=== PATIENT | male | born 1980 | race Caucasian/White ===

== ENCOUNTER 2017-06-09 22:09 | Emergency (ER) | payer BC ==
--- NOTE | 2017-06-09 22:38 | ER Document Report ---
ED General - General Chief Complaint: Anxiety Stated Complaint: ANXIETY Time Seen by Provider: 06/09/17 22:37 Mode of Arrival: Ambulatory Information source: Patient Notes: 36-year-old male with a history of of depression, anxiety, GERD, previous opioid dependence and low testosterone presents with complaint of anxiety. Patient states that he has suffered the loss of his mother approximately 1 week prior to arrival. States he lives next door and was very close to her and has been having daily episodes of anxiety, palpitations. She states this evening he took gabapentin and Ambien and attempted to go to sleep when he became very anxious began experiencing palpitations, hyperventilating and sweating. Patient has had prior similar symptoms. Denies any recent illnesses. Currently he denies any headache, chest pain, shortness of breath, abdominal pain. TRAVEL OUTSIDE OF THE [place] IN LAST 30 DAYS: No - HPI Onset: Just prior to arrival Onset/Duration: Gradual Quality of pain: No pain Severity: None Associated symptoms: Nausea. denies: Vomiting Exacerbated by: Denies Relieved by: Denies Similar symptoms previously: Yes Recently seen / treated by doctor: Yes - Related Data Allergies/Adverse Reactions: No Known Allergies Allergy (Verified 11/13/13 00:45) Past Medical History - General Information source: Patient - Social History Smoking Status: Never Smoker Frequency of alcohol use: None Drug Abuse: None Lives with: Family Family History: CAD - Past Medical History Cardiac Medical History: Reports: Hx Hypertension GI Medical History: Reports: Hx Gastroesophageal Reflux Disease Musculoskeltal Medical History: Reports Hx Musculoskeletal Trauma Psychiatric Medical History: Reports: Hx Anxiety, Hx Depression - Immunizations Immunizations up to date: Yes Hx Diphtheria, Pertussis, Tetanus Vaccination: Yes Review of Systems - Review of Systems Constitutional: See HPI, Diaphoresis. denies: Fever, Weakness Cardiovascular: Palpitations, Heart racing. denies: Dizziness Respiratory: denies: Cough, Short of breath Gastrointestinal: Nausea. denies: Diarrhea, Vomiting Genitourinary: denies: Dysuria Musculoskeletal: Muscle pain, Muscle stiffness Skin: No symptoms reported Neurological/Psychological: Anxiety. denies: Confusion, Hallucinations, Lost consciousness, Headaches, Suicidal ideation Physical Exam - Vital signs Vitals: Temp Pulse Resp BP Pulse Ox 98.1 F 107 H 20 156/89 H 99 06/09/17 22:11 06/09/17 22:11 06/09/17 22:11 06/09/17 22:11 06/09/17 22:11 Interpretation: Normal, Tachycardic - General General appearance: Appears well, Alert In distress: None - HEENT Head: Normocephalic, Atraumatic Eyes: Normal Extraocular movements intact: Yes Pupils: PERRL Ears: Normal External canal: Normal Tympanic membrane: Normal Pharynx: Normal Neck: Normal - Respiratory Respiratory status: No respiratory distress. No: Respiratory distress Chest status: Nontender Breath sounds: Normal Chest palpation: Normal - Cardiovascular Rhythm: Regular Heart sounds: Normal auscultation Murmur: No Pulses: Normal: Radial Normal capillary refill: Yes - Abdominal Inspection: Normal Distension: No distension Bowel sounds: Normal Tenderness: Nontender Organomegaly: No organomegaly - Back Back: Normal, Nontender. No: CVA tenderness, Vertebra tenderness - Extremities General upper extremity: Normal inspection - Moves all extremities, Nontender, Normal color, Normal ROM, Normal temperature General lower extremity: Normal inspection, Nontender, Normal color, Normal ROM , Normal temperature, Normal weight bearing. No: Taj's sign - Neurological Neuro grossly intact: Yes Cognition: Normal Orientation: AAOx4 [place] Coma Scale Eye Opening: Spontaneous Michelle Coma Scale Verbal: Oriented Michelle Coma Scale Motor: Obeys Commands Michelle Coma Scale Total: 15 Speech: Normal Motor strength normal: LUE, RUE, LLE, RLE Sensory: Normal - Psychological Associated symptoms: Normal affect, Anxious, Depressed, Tearful, Unable to sleep Course - Re-evaluation Re-evalutation: 06/09/17 23:56 Reevaluation patient states he is feeling better. He has had no recurrence of symptoms. He was reassured and discharged home in table condition with a perception for Atarax. 06/10/17 05:37 36-year-old male with history of depression and anxiety presents with complaint of anxiety, chest palpitations, hyperventilation that occurred just prior to arrival. Patient has recently experienced the loss of his mother less than 1 week ago. He states that he has been having episodes of anxiety since that time. Upon arrival vitals reviewed and within normal limits. Patient does not appear toxic or dehydrated. He is in no acute distress. He denies SI/HI. Patient is anxious during my exam. Patient received 1 mg of Ativan during his ED course. EKG was obtained and showed no abnormalities. He was reassured by this. Patient was discharged home with a prescription for Vistaril. - Vital Signs Vital signs: Temp Pulse Resp BP Pulse Ox 98.7 F 87 18 119/90 H 96 06/10/17 00:05 06/10/17 00:05 06/10/17 00:05 06/10/17 00:05 06/10/17 00:05 - EKG Interpretation by Me EKG shows normal: Sinus rhythm Rate: Normal Rhythm: NSR Discharge - Discharge Clinical Impression: Anxiety as acute reaction to exceptional stress Condition: Good Disposition: HOME, SELF-CARE Instructions: Anxiety ([facility]) Prescriptions: Hydroxyzine Pamoate [Vistaril 50 mg Capsule] 50 mg PO Q8H PRN #15 capsule PRN Reason: Anxiety
[2017-06-09] MEDS ORDERED: LORAZEPAM 1 MG TABLET PO ONE (22:58)
[2017-06-10 00:09] VITALS: BP 119/90
--- NOTE | 2017-06-10 09:01 | EKG REPORT ---
SEVERITY:- NORMAL ECG - SINUS RHYTHM : Confirmed by: Ana Ro 10-Jun-2017 09:00:27
== END 2017-06-10 00:05 | disposition home or self-care (01) ==
LOC: ER 22:09
DX: F41.1 Generalized anxiety disorder (principal); F43.9 Reaction to severe stress, unspecified; R00.2 Palpitations; R11.0 Nausea; M79.1 Myalgia; I10 Essential (primary) hypertension
CPT/HCPCS: 93005; 93010; 99283

== ENCOUNTER 2018-04-08 15:28 | Emergency (ER) | payer OTHER, BC ==
[2018-04-08] MEDS ORDERED: OXYCODONE-ACETAMINOPHEN 5-325 MG TABLET PO ONE (16:08)
--- NOTE | 2018-04-08 16:11 | ER Document Report ---
ED Medical Screen (RME) - General Chief Complaint: Fall Stated Complaint: FALL/ANKLE AND ARM PAIN Time Seen by Provider: 04/08/18 16:05 Mode of Arrival: Wheelchair Information source: Patient Notes: pt presents after falling off a roof. pt reports he had ladder going up to 2nd floor, ladder fell, he landed on first story roof, grabbed gutter, fell to ground. no change in loc, c/o left ankle right hand and left upper arm pain. + swelling to ankle, drove self here, can get a ride home. denies head/neck pain. a&o. TRAVEL OUTSIDE OF THE [place] IN LAST 30 DAYS: No - Related Data Allergies/Adverse Reactions: No Known Allergies Allergy (Verified 04/08/18 15:31) Past Medical History - Social History Chew tobacco use (# tins/day): No Frequency of alcohol use: Occasional Drug Abuse: None - Past Medical History Cardiac Medical History: Reports: Hx Hypertension Renal/ Medical History: Denies: Hx Peritoneal Dialysis GI Medical History: Reports: Hx Gastroesophageal Reflux Disease Musculoskeltal Medical History: Reports Hx Musculoskeletal Trauma Psychiatric Medical History: Reports: Hx Anxiety, Hx Depression - Immunizations Immunizations up to date: Yes Hx Diphtheria, Pertussis, Tetanus Vaccination: Yes Physical Exam - Vital signs Vitals: Temp Pulse Resp BP Pulse Ox 98.2 F 99 16 128/76 H 96 04/08/18 15:59 04/08/18 15:59 04/08/18 15:59 04/08/18 15:59 04/08/18 15:59 Course - Vital Signs Vital signs: Temp Pulse Resp BP Pulse Ox 99.2 F 87 18 134/83 H 98 04/08/18 18:46 04/08/18 18:46 04/08/18 18:46 04/08/18 18:46 04/08/18 18:46 Doctor's Discharge - Discharge Clinical Impression: Left ankle sprain Condition: Good Disposition: HOME, SELF-CARE Instructions: Ice Packs ([facility]), Splint Precautions ([facility]), Sprained Ankle ([facility]) Additional Instructions: Please return if symptoms are getting worse. Prescriptions: Ketorolac Tromethamine [Toradol 10 mg Tablet] 10 mg PO Q8HP PRN 7 Days #21 tablet PRN Reason: Forms: Return to Work Referrals: PATRIZIA KOENIG MD [ACTIVE STAFF] - Follow up as needed
--- NOTE | 2018-04-08 16:37 | RADIOLOGY REPORT (SQ) ---
EXAM DESCRIPTION: HAND RIGHT 3 VIEWS COMPLETED DATE/TIME: 04/08/2018 4:29 pm REASON FOR STUDY: fall off roof, hand and ankle pain COMPARISON: None. EXAM PARAMETERS: NUMBER OF VIEWS: Three views. TECHNIQUE: AP, lateral and oblique radiographic images acquired of the right hand. LIMITATIONS: None. FINDINGS: MINERALIZATION: Normal. BONES: No acute fracture or dislocation. No worrisome bone lesions. JOINTS: No effusions. SOFT TISSUES: No soft tissue swelling. No foreign body. OTHER: No other significant finding. IMPRESSION: NEGATIVE STUDY OF THE RIGHT HAND. NO RADIOGRAPHIC EVIDENCE OF ACUTE INJURY. TECHNICAL DOCUMENTATION: JOB ID: [id number] [employer]- All Rights Reserved Reading location - IP/workstation name: [email or web address]
--- NOTE | 2018-04-08 16:38 | RADIOLOGY REPORT (SQ) ---
EXAM DESCRIPTION: ANKLE LEFT COMPLETE COMPLETED DATE/TIME: 04/08/2018 4:29 pm REASON FOR STUDY: fall off roof, hand and ankle pain COMPARISON: None. NUMBER OF VIEWS: Three views. TECHNIQUE: AP, lateral, and oblique radiographic images acquired of the left ankle. LIMITATIONS: None. FINDINGS: MINERALIZATION: Normal. BONES: No acute fracture or dislocation. No worrisome bone lesions. JOINTS: No effusions. SOFT TISSUES: Lateral soft tissue swelling OTHER: No other significant finding. IMPRESSION: Soft tissue swelling. No fracture. TECHNICAL DOCUMENTATION: JOB ID: [id number] [employer]- All Rights Reserved Reading location - IP/workstation name: [email or web address]
[2018-04-08] MEDS ORDERED: KETOROLAC TROMETHAMINE 60 MG/2 ML SDV IM ONE (17:15)
--- NOTE | 2018-04-08 17:18 | ER Document Report ---
ED Fall - General Chief Complaint: Fall Stated Complaint: FALL/ANKLE AND ARM PAIN Time Seen by Provider: 04/08/18 16:05 Mode of Arrival: Wheelchair Information source: Patient Notes: 37-year-old male was working on a roof. To level house. Fell off the upper level. Landed on the first level overhang. Slid down further and it was able to stop himself by grabbing the gutter. His fall was slowed and then he fell to the ground. Landed on the left leg. Twisted the ankle. Also with pain in the right hand. Pain in the right hand is getting better. Large amount of swelling to the left ankle reported. Denies any loss of consciousness. No back pain, hip pain. Did not his head. Denies any chest pain, abdominal pain or shortness of breath. TRAVEL OUTSIDE OF THE [place] IN LAST 30 DAYS: No - HPI Occurred: Just prior to arrival - Related data Allergies/Adverse Reactions: No Known Allergies Allergy (Verified 04/08/18 15:31) Past Medical History - General Information source: Patient - Social History Smoking Status: Never Smoker Chew tobacco use (# tins/day): No Frequency of alcohol use: Occasional Drug Abuse: None Lives with: Family Family History: CAD Patient has suicidal ideation: No Patient has homicidal ideation: No - Past Medical History Cardiac Medical History: Reports: Hx Hypertension Renal/ Medical History: Denies: Hx Peritoneal Dialysis GI Medical History: Reports: Hx Gastroesophageal Reflux Disease Musculoskeletal Medical History: Reports Hx Musculoskeletal Trauma Psychiatric Medical History: Reports: Hx Anxiety, Hx Depression - Immunizations Immunizations up to date: Yes Hx Diphtheria, Pertussis, Tetanus Vaccination: Yes Review of Systems - Review of Systems Notes: Constitutional: denies: Chills, Diaphoresis, Fever, Malaise, Weakness EENT: denies: Eye discharge, Blurred vision, Tearing, Double vision, Nose congestion, Nose discharge, Throat swelling, Mouth pain Cardiovascular: denies: Palpitations, Heart racing, Orthopnea, Dyspnea, Chest pain Respiratory: denies: Cough, Hurts to breathe, Wheezing, Shortness of breath Gastrointestinal: denies: Abdominal pain, Diarrhea, Nausea, Vomiting, Black stools, bright red blood in stool Genitourinary: denies: Burning, Dysuria, Discharge, Frequency, Flank pain, Hematuria Musculoskeletal: Complaining of pain in the left ankle and right hand. Hematologic/Lymphatic: denies: Anemia, Easy bleeding, Easy bruising, Blood clots Neurological/Psychological: denies: Confusion, Dementia, Depression, Loss of consciousness Skin: No lesions, no masses, no skin breakdown, no abscesses Physical Exam - Vital signs Vitals: Temp Pulse Resp BP Pulse Ox 98.2 F 99 16 128/76 H 96 04/08/18 15:59 04/08/18 15:59 04/08/18 15:59 04/08/18 15:59 04/08/18 15:59 Interpretation: Normal - General General appearance: Appears well, Alert - HEENT Head: Normocephalic, Atraumatic Eyes: Normal Pupils: PERRL - Respiratory Respiratory status: No respiratory distress Chest status: Nontender Breath sounds: Normal Chest palpation: Normal - Cardiovascular Rhythm: Regular Heart sounds: Normal auscultation Murmur: No - Abdominal Inspection: Normal Distension: No distension Bowel sounds: Normal Tenderness: Nontender Organomegaly: No organomegaly - Back Back: Normal, Nontender - Extremities General upper extremity: Normal inspection, Nontender, Normal color, Normal ROM, Normal temperature General lower extremity: Tender, Edema, Other - Swollen right ankle. Tenderness in the tibial fibular ligament.. No: Normal ROM, Normal weight bearing, Taj's sign - Neurological Neuro grossly intact: Yes Cognition: Normal Orientation: AAOx4 [place] Coma Scale Eye Opening: Spontaneous Michelle Coma Scale Verbal: Oriented Michelle Coma Scale Motor: Obeys Commands [place] Coma Scale Total: 15 Speech: Normal Motor strength normal: LUE, RUE, LLE, RLE Sensory: Normal - Psychological Associated symptoms: Normal affect, Normal mood - Skin Skin Temperature: Warm Skin Moisture: Dry Skin Color: Normal Course - Re-evaluation Re-evalutation: 04/08/18 20:17 No evidence of fracture. Will place in splint. Pain medication and urged close follow-up. Will DC at this time in stable condition. Ankle X-Ray 04/08/18 16:08 IMPRESSION: Soft tissue swelling. No fracture. Hand X-Ray 04/08/18 16:08 IMPRESSION: NEGATIVE STUDY OF THE RIGHT HAND. NO RADIOGRAPHIC EVIDENCE OF ACUTE INJURY. - Vital Signs Vital signs: Temp Pulse Resp BP Pulse Ox 99.2 F 87 18 134/83 H 98 04/08/18 18:46 04/08/18 18:46 04/08/18 18:46 04/08/18 18:46 04/08/18 18:46 Discharge - Discharge Clinical Impression: Left ankle sprain Qualifiers: Encounter type: initial encounter Involved ligament of ankle: tibiofibular ligament Qualified Code(s): S93.432A - Sprain of tibiofibular ligament of left ankle, initial encounter Condition: Good Disposition: HOME, SELF-CARE Instructions: Ice Packs ([facility]), Splint Precautions ([facility]), Sprained Ankle ([facility]) Additional Instructions: Please return if symptoms are getting worse. Prescriptions: Ketorolac Tromethamine [Toradol 10 mg Tablet] 10 mg PO Q8HP PRN 7 Days #21 tablet PRN Reason: Forms: Return to Work Referrals: PATRIZIA KOENIG MD [ACTIVE STAFF] - Follow up as needed
[2018-04-08 18:47] VITALS: BP 134/83
== END 2018-04-08 18:46 | disposition home or self-care (01) ==
LOC: ER 15:28
DX: S93.432A Sprain of tibiofibular ligament of left ankle, initial encounter (principal); M79.605 Pain in left leg; W13.2XXA Fall from, out of or through roof, initial encounter; Y99.0 Civilian activity done for income or pay; I10 Essential (primary) hypertension
CPT/HCPCS: 99283; 96372; 73610; 73130; L1902; J1885

== ENCOUNTER 2018-06-24 11:09 | Emergency (ER) | payer BC, OTHER ==
--- NOTE | 2018-06-24 11:44 | ER Document Report ---
ED Medical Screen (RME) - General Chief Complaint: Abdominal Pain Stated Complaint: ABDOMINAL PAIN Time Seen by Provider: 06/24/18 11:39 Mode of Arrival: Ambulatory Information source: Patient Notes: Patient is a 37-year-old male who presents with chief complaint of abdominal pain. Patient reports intermittent abdominal pain that radiates across his entire abdomen that radiates up into his epigastric area and chest. He states pain has been ongoing for 1 week, states it is intermittent. Denies any alleviating or exacerbating symptoms. Denies any nausea, vomiting, diarrhea or fever. Patient does report increased alcohol intake over the last 5 months, states he drinks approximately 4 drinks per day. Exam: Lung sounds are clear to auscultation bilaterally. Limited abdominal exam in triage reveals a soft and nontender abdomen. I have greeted and performed a rapid initial assessment of this patient. A comprehensive ED assessment and evaluation of the patient, analysis of test r esults and completion of the medical decision making process will be conducted by additional ED providers. Dictation of this chart was performed using voice recognition software; therefore, there may be some unintended grammatical errors. TRAVEL OUTSIDE OF THE [place] IN LAST 30 DAYS: No - Related Data Allergies/Adverse Reactions: No Known Allergies Allergy (Verified 06/24/18 11:10) Past Medical History - Social History Frequency of alcohol use: Heavy Drug Abuse: None - Past Medical History Cardiac Medical History: Reports: Hx Hypertension Renal/ Medical History: Denies: Hx Peritoneal Dialysis GI Medical History: Reports: Hx Gastroesophageal Reflux Disease Musculoskeltal Medical History: Reports Hx Musculoskeletal Trauma Psychiatric Medical History: Reports: Hx Anxiety, Hx Depression - Immunizations Immunizations up to date: Yes Hx Diphtheria, Pertussis, Tetanus Vaccination: Yes Physical Exam - Vital signs Vitals: Temp Pulse Resp BP Pulse Ox 98.0 F 93 14 135/78 H 100 06/24/18 11:25 06/24/18 11:25 06/24/18 11:25 06/24/18 11:25 06/24/18 11:25 Course - Vital Signs Vital signs: Temp Pulse Resp BP Pulse Ox 98.0 F 93 14 135/78 H 100 06/24/18 11:25 06/24/18 11:25 06/24/18 11:25 06/24/18 11:25 06/24/18 11:25
[2018-06-24 12:45] LABS: ABSOLUTE LYMPHOCYTES (AUTO) 1.1 10^3/uL (0.5-4.7); ABSOLUTE MONOCYTES (AUTO) 0.5 10^3/uL (0.1-1.4); ABSOLUTE NEUT (AUTO) 3.7 10^3/uL (1.7-8.2); BASOPHILS % (AUTO) 0.6 % (0-2); EOSINOPHILS % (AUTO) 0.7 % (0-6); HEMATOCRIT 47.2 % (37.9-51.0); HEMOGLOBIN 16.4 g/dL (13.5-17.0); LYMPHOCYTES % (AUTO) 20.6 % (13-45); MEAN CORPUSCULAR HEMOGLOBIN 30.8 pg (27.0-33.4); MEAN CORPUSCULAR HGB CONC 34.7 g/dL (32.0-36.0); MEAN CORPUSCULAR VOLUME 89 fl (80-97); MONOCYTES % (AUTO) 9.5 % (3-13); PLATELET COUNT 163 10^3/uL (150-450); RED BLOOD COUNT 5.31 10^6/uL (4.35-5.55); RED CELL DISTRIBUTION WIDTH 13.4 % (11.5-14.0); SEGMENTED NEUTROPHILS % (AUTO) 68.6 % (42-78); TOTAL CELLS COUNTED % (AUTO) 100 %; WHITE BLOOD COUNT 5.4 10^3/uL (4.0-10.5)
[2018-06-24 13:09] LABS: ALANINE AMINOTRANSFERASE 22 U/L (21-72); ALBUMIN 4.4 g/dL (3.5-5.0); ALKALINE PHOSPHATASE 68 U/L (38-126); ANION GAP 6 (5-19); ASPARTATE AMINO TRANSFERASE 20 U/L (17-59); BILIRUBIN,DIRECT 0.3 mg/dL (0.0-0.4); BILIRUBIN,TOTAL 0.7 mg/dL (0.2-1.3); BLOOD UREA NITROGEN 16 mg/dL (7-20); CALCIUM 9.6 mg/dL (8.4-10.2); CARBON DIOXIDE 31 mmol/L (22-30); CHLORIDE 101 mmol/L (98-107); GLUCOSE 110 mg/dL (75-110); LIPASE 30.2 U/L (23-300); POTASSIUM 4.5 mmol/L (3.6-5.0); SODIUM 137.9 mmol/L (137-145); TOTAL PROTEIN 7.6 g/dL (6.3-8.2)
[2018-06-24 13:45] LABS: APPEARANCE,URINE CLEAR; BILIRUBIN,URINE NEGATIVE (NEGATIVE); COLOR,URINE YELLOW; GLUCOSE, URINE NEGATIVE (NEGATIVE); KETONES,URINE NEGATIVE (NEGATIVE); LEUKOCYTE ESTERASE,URINE NEGATIVE (NEGATIVE); NITRITE,URINE NEGATIVE (NEGATIVE); PROTEIN,URINE NEGATIVE (NEGATIVE); URINE SPECIFIC GRAVITY 1.023; UROBILINOGEN,URINE NEGATIVE mg/dL (<2.0)
--- NOTE | 2018-06-24 14:23 | ER Document Report ---
ED General - General Chief Complaint: Abdominal Pain Stated Complaint: ABDOMINAL PAIN Time Seen by Provider: 06/24/18 11:39 Primary Care Provider: VICKEY DUDLEY PA-C [Primary Care Provider] - Follow up as needed Mode of Arrival: Ambulatory TRAVEL OUTSIDE OF THE [place] IN LAST 30 DAYS: No - HPI Patient complains to provider of: Stomach and chest discomfort Onset: This morning Onset/Duration: Sudden Quality of pain: Sharp Severity: Severe Pain Level: 4 Associated symptoms: denies: Chills, Fever Exacerbated by: Denies Relieved by: Denies Similar symptoms previously: No Recently seen / treated by doctor: No Notes: 37-year-old male coming in today with stomach and chest discomfort. He was driving to his job this morning and started having some sharp nagging pain in his abdomen that seemed to radiate up into his chest. He is admittedly chronically anxious. He has what sounds like a number of stressors that probably do not help with this. Has a history of GERD which he treats with Protonix. He is also on a Suboxone program and has anxiety about coming off of it. He does not report any history of known hypertension, hypercholesterolemia, diabetes, tobacco abuse, or significant family cardiac history. - Related Data Allergies/Adverse Reactions: No Known Allergies Allergy (Verified 06/24/18 11:10) Past Medical History - General Information source: Patient - Social History Smoking Status: Never Smoker Frequency of alcohol use: Heavy Drug Abuse: None Family History: Reviewed & Not Pertinent, CAD Patient has suicidal ideation: No Patient has homicidal ideation: No - Past Medical History Cardiac Medical History: Reports: Hx Hypertension Renal/ Medical History: Denies: Hx Peritoneal Dialysis GI Medical History: Reports: Hx Gastroesophageal Reflux Disease Musculoskeletal Medical History: Reports Hx Musculoskeletal Trauma Psychiatric Medical History: Reports: Hx Anxiety, Hx Depression - Immunizations Immunizations up to date: Yes Hx Diphtheria, Pertussis, Tetanus Vaccination: Yes Review of Systems - Review of Systems Notes: Constitutional: No fevers. No chills. EENT: No eye redness. No eye pain. No ear pain. No sore throat. Cardiovascular: Positive for chest pain. No palpitations. Respiratory: No cough. No shortness of breath. No respiratory distress. Gastrointestinal: No abdominal pain. No nausea, vomiting, or diarrhea. Genitourinary: Atraumatic. No lesions. No pain. No discharge. Musculoskeletal: Atraumatic. No swelling. No deformities. Skin: No rash or lesions. Lymphatic: No swollen lymph nodes. Neurologic: No headache. No syncope. Psychiatric: No suicidal or homicidal ideation. Physical Exam - Vital signs Vitals: Temp Pulse Resp BP Pulse Ox 98.0 F 93 14 135/78 H 100 06/24/18 11:25 06/24/18 11:25 06/24/18 11:25 06/24/18 11:25 06/24/18 11:25 - Notes Notes: General: Well-developed, well-nourished. In no acute distress. Non-toxic ap pearing. Cardiac: Well-perfused. Regular rate and rhythm. No murmurs, rubs, or gallops. Pulmonary: No respiratory distress. No cyanosis. Bilateral lung vizcarra are clear to auscultation. Abdominal: Non-distended. Non-rigid. Bowels sounds are present in all four quadrants. No guarding or rebound. HEENT: Head is atraumatic. Conjunctivae not reddened. No tearing. PERRL. EOMI. Orbits atraumatic. No periorbital swelling or erythema. Oropharynx is without erythema, swelling, or exudates. Neck: Supple. No adenopathy. No meningismus. Dermatologic: Warm with good turgor. No rash. Atraumatic. Chest: Atraumatic. No chest wall tenderness to palpation. Musculoskeletal: Moves all extremities well. No range of motion deficits. no muscular or joint tenderness. No paraspinal muscle tenderness. no midline spinal tenderness or step-off. Genitourinary: Examination deferred Neurologic: No gross neurologic deficits. Psychiatric: Normal mood. Course - Re-evaluation Re-evalutation: 06/24/18 14:22 Sounds mostly like anxiety. He may have a little bit of gastritis secondary to his excessive anxiety. We will give him a GI cocktail his heart score is 0. 06/24/18 14:23 I will see how he feels after his GI cocktail. EKG and baseline troponin also ordered. 06/24/18 16:21 Patient was not having any discomfort when we offered a GI cocktail so I did not order that. EKG and baseline troponin were totally normal. Told the patient he is always free to return to have his chest pain reassessed. I think this is most likely GI in origin. I told him it sounds like he is got a lot of stress factors that need to be addressed. If the chest symptoms persist, good nuclear stress test would probably be helpful. - Vital Signs Vital signs: Temp Pulse Resp BP Pulse Ox 98.0 F 93 14 135/78 H 100 06/24/18 11:25 06/24/18 11:25 06/24/18 11:25 06/24/18 11:25 06/24/18 11:25 - Laboratory Result Diagrams: 06/24/18 12:33 06/24/18 12:33 Laboratory results interpreted by me: 06/24/18 12:33 Carbon Dioxide 31 H - Diagnostic Test Radiology reviewed: Reports reviewed - EKG Interpretation by Me EKG shows normal: Sinus rhythm, [place], Intervals, QRS Complexes, ST-T Waves Rate: Normal Discharge - Discharge Clinical Impression: Dyspepsia, Atypical chest pain Condition: Good Disposition: HOME, SELF-CARE Instructions: Abdominal Pain ([facility]), Chest Pain of Unclear Cause ([facility]) Additional Instructions: Continue your Protonix. You can add Maalox intermittently if you get worsening dyspepsia. If your chest pain gets worse you are always welcome to return to the ED for re-evaluation. You may ask your doctor to see if he/she would be willing to schedule you for an exercise stress test. Forms: Elevated Blood Pressure Referrals: VICKEY DUDLEY PA-C [Primary Care Provider] - Follow up as needed
[2018-06-24 16:38] VITALS: BP 157/66
--- NOTE | 2018-06-24 19:48 | EKG REPORT ---
SEVERITY:- NORMAL ECG - SINUS RHYTHM : Confirmed by: Pilo Grace MD 24-Jun-2018 19:47:59
== END 2018-06-24 16:39 | disposition home or self-care (01) ==
LOC: ER 11:09
DX: R10.13 Epigastric pain (principal); R07.89 Other chest pain; R10.9 Unspecified abdominal pain; R07.9 Chest pain, unspecified; F41.9 Anxiety disorder, unspecified; Z79.899 Other long term (current) drug therapy; I10 Essential (primary) hypertension
CPT/HCPCS: 36415; 80053; 81001; 83690; 84484; 85025; 93005; 93010; 99284

== ENCOUNTER 2018-12-07 10:15 | Emergency (ER) | payer BC ==
[2018-12-07] MEDS ORDERED: ASPIRIN 81 MG TABLET, CHEWABLE PO ONE (11:06)
--- NOTE | 2018-12-07 11:08 | ER Document Report ---
ED Medical Screen (RME) - General Chief Complaint: Chest Pain Stated Complaint: CHEST PAIN/NUMBNESS Time Seen by Provider: 12/07/18 11:00 Primary Care Provider: VICKEY DUDLEY PA-C [Primary Care Provider] - Follow up as needed Mode of Arrival: Ambulatory Information source: Patient Notes: 38-year-old male presents emergency department with chest and abdominal pain since May of last year. He reports the pain comes and goes. Describes the pain as twisty. Reports history of anxiety. Patient reports he has had the pain ever since his mother last year in May. Reports he vomited on Thursday. Denies fever diarrhea. Reports his urine is been kind of dark lately but he works outside. Reports pain 03/27. I have greeted and performed a rapid initial assessment of this patient. A comprehensive ED assessment and evaluation of the patient, analysis of test results and completion of the medical decision making process will be conducted by additional ED providers. Dictation of this chart was performed using voice recognition software; therefore, there may be some unintended grammatical errors. TRAVEL OUTSIDE OF THE [place] IN LAST 30 DAYS: No - Related Data Allergies/Adverse Reactions: No Known Allergies Allergy (Verified 06/24/18 11:10) Past Medical History - Past Medical History Cardiac Medical History: Reports: Hx Hypertension Renal/ Medical History: Denies: Hx Peritoneal Dialysis GI Medical History: Reports: Hx Gastroesophageal Reflux Disease Musculoskeltal Medical History: Reports Hx Musculoskeletal Trauma Psychiatric Medical History: Reports: Hx Anxiety, Hx Depression - Immunizations Immunizations up to date: Yes Hx Diphtheria, Pertussis, Tetanus Vaccination: Yes Physical Exam - Vital signs Vitals: Temp Pulse Resp BP Pulse Ox 98.1 F 92 16 150/89 H 99 12/07/18 10:30 12/07/18 10:30 12/07/18 10:30 12/07/18 10:30 12/07/18 10:30 Course - Vital Signs Vital signs: Temp Pulse Resp BP Pulse Ox 98.1 F 92 16 150/89 H 99 12/07/18 10:30 12/07/18 10:30 12/07/18 10:30 12/07/18 10:30 12/07/18 10:30 Doctor's Discharge - Discharge Referrals: VICKEY DUDLEY PA-C [Primary Care Provider] - Follow up as needed
[2018-12-07 11:21] LABS: ABSOLUTE EOSINOPHILS # (AUTO) 0.1 10^3/uL (0.0-0.6); ABSOLUTE LYMPHOCYTES (AUTO) 1.3 10^3/uL (0.5-4.7); ABSOLUTE MONOCYTES (AUTO) 0.6 10^3/uL (0.1-1.4); ABSOLUTE NEUT (AUTO) 2.4 10^3/uL (1.7-8.2); EOSINOPHILS % (AUTO) 2.4 % (0-6); HEMOGLOBIN 15.8 g/dL (13.5-17.0); LYMPHOCYTES % (AUTO) 29.2 % (13-45); MEAN CORPUSCULAR HEMOGLOBIN 30.4 pg (27.0-33.4); MEAN CORPUSCULAR HGB CONC 35.2 g/dL (32.0-36.0); MEAN CORPUSCULAR VOLUME 86 fl (80-97); MONOCYTES % (AUTO) 13.1 % (3-13); PLATELET COUNT 160 10^3/uL (150-450); RED CELL DISTRIBUTION WIDTH 12.7 % (11.5-14.0); SEGMENTED NEUTROPHILS % (AUTO) 54.3 % (42-78); TOTAL CELLS COUNTED % (AUTO) 100 %; WHITE BLOOD COUNT 4.5 10^3/uL (4.0-10.5)
--- NOTE | 2018-12-07 11:24 | ER Document Report ---
ED General - General Chief Complaint: Chest Pain Stated Complaint: CHEST PAIN/NUMBNESS Time Seen by Provider: 12/07/18 11:00 Primary Care Provider: VICKEY DUDLEY PA-C [COMMUNITY BASED STAFF] - Follow up as needed Mode of Arrival: Ambulatory Notes: Patient is a 38-year-old male who says he is having "stomach issues" for a while. He says that the symptoms have been present for months, but worsened over the last couple of weeks. His pain is located in the lower sides of his abdomen, not more on either side. Noticed his urine is dark over the last couple of days. Patient says he has been working 16-hour days because of a job that he has to get completed and is working outside a lot. No history of kidney or liver problems. Says he has had a couple of episodes of vomiting, once on Thursday and the other on Thursday. Not having any diarrhea. Patient says he also is having chest pains,'s also sometimes for a few months. In the last couple of weeks it seems to have increased. Has some associated shortness of breath occasionally. Patient says both of his parents recently. Patient says he is very stressed out and has trouble sleeping and takes Ambien for that. He is also seen and evaluated and cared for for anxiety and depression, but not on any current medications. Patient says he is coming off of Suboxone which is been on for 4 years. He plans to be finished with the Suboxone by January. He does not smoke cigarettes but drinks a couple drinks and evening. TRAVEL OUTSIDE OF THE [place] IN LAST 30 DAYS: No - Related Data Allergies/Adverse Reactions: No Known Allergies Allergy (Verified 06/24/18 11:10) Past Medical History - General Information source: Patient - Social History Smoking Status: Never Smoker Frequency of alcohol use: Heavy Drug Abuse: None Family History: Reviewed & Not Pertinent, CAD Patient has suicidal ideation: No Patient has homicidal ideation: No - Past Medical History Cardiac Medical History: Reports: Hx Hypertension GI Medical History: Reports: Hx Gastroesophageal Reflux Disease Musculoskeletal Medical History: Reports Hx Musculoskeletal Trauma Psychiatric Medical History: Reports: Hx Anxiety, Hx Depression - Immunizations Immunizations up to date: Yes Hx Diphtheria, Pertussis, Tetanus Vaccination: Yes Review of Systems - Review of Systems Notes: REVIEW OF SYSTEMS: CONSTITUTIONAL : Denies fever. EENT: Denies eye, ear, nose or mouth or throat pain or other symptoms. CARDIOVASCULAR: See HPI. RESPIRATORY: Denies cough, chest congestion, occasional shortness of breath. GASTROINTESTINAL: Denies abdominal pain or nausea, vomiting, or diarrhea. GENITOURINARY: Denies difficulty or painful urinating, urinary frequency, blood in urine. MUSCULOSKELETAL: Denies back or neck pain. Denies joint pain or swelling. SKIN: Denies rash or skin lesions. NEUROLOGICAL: Denies LOC or altered mental status. Denies headache. Denies sensory loss or motor deficits. ALL OTHER SYSTEMS REVIEWED AND NEGATIVE. Physical Exam - Vital signs Vitals: Temp Pulse Resp BP Pulse Ox 98.1 F 92 16 150/89 H 99 12/07/18 10:30 12/07/18 10:30 12/07/18 10:30 12/07/18 10:30 12/07/18 10:30 Interpretation: Normal Notes: PHYSICAL EXAMINATION: GENERAL: Well-appearing, in no acute distress. HEAD: Atraumatic, normocephalic. EYES: Pupils equal round and reactive to light, extraocular movements intact. ENT: oropharynx clear without exudates. Moist mucous membranes. NECK: Normal range of motion, supple. LUNGS: Breath sounds clear and equal bilaterally. No chest wall tenderness. HEART: Regular rate and rhythm without murmurs. ABDOMEN: Soft, nontender. No guarding or rebound. No masses. BACK: No tenderness throughout entire back. EXTREMITIES: Normal range of motion without pain. Negative Homans bilaterally. NEUROLOGICAL: Normal speech, normal gait. Normal sensory, motor, and reflex exams. Awake, alert, and oriented x3. Cranial nerves normal. PSYCH: Normal mood, normal affect. SKIN: Warm, dry, no rashes. Course - Re-evaluation Re-evalutation: 12/07/18 13:27 Patient remained asymptomatic during his time in the emergency department. His work-up was normal. Advised patient to continue with reducing his Suboxone. Try to get better rest and not work quite as long hours. - Vital Signs Vital signs: Temp Pulse Resp BP Pulse Ox 97.8 F 92 16 144/98 H 97 12/07/18 13:01 12/07/18 10:30 12/07/18 13:01 12/07/18 13:01 12/07/18 13:01 - Laboratory Result Diagrams: 12/07/18 11:05 12/07/18 11:05 Laboratory results interpreted by me: 12/07/18 12/07/18 11:05 11:05 Todd % (Auto) 13.1 H Carbon Dioxide 31 H - EKG Interpretation by Me EKG shows normal: Sinus rhythm Rate: Normal Rhythm: NSR Discharge - Discharge Clinical Impression: Abdominal pain, Chest pain Condition: Stable Disposition: HOME, SELF-CARE Additional Instructions: ABDOMINAL PAIN: There are many causes of abdominal pain. Pain can mean a serious problem requiring surgery (such as appendicitis). It can also be an innocent problem that goes away on its own (such as a viral infection). Often, time must pass to determine the cause of pain. The physician does not feel that hospitalization is necessary, at present. Things may change within the next 24 hours. Call the doctor or come back for re- examination if any problems occur, such as: (1) Pain that becomes more severe, steady, or becomes concentrated in one specific area. Also, pain that is more severe with movement or coughing. (2) Vomiting that persists or becomes more frequent. (3) Blood in the vomitus, urine, or bowel movements. Blood in the stool may have a tarry or black appearance. (4) Shaking chills or fever greater than 100 degrees F. (5) The abdomen becomes more distended or swollen. (6) Bowel movements cease. (7) Failure to improve as expected. NORMAL EXAM AND WORKUP: At this time, your examination and workup show no significant abnormality. No significant abnormal physical findings are noted. All laboratory, EKG, and imaging (x-ray, CT scans, ultrasound) studies that were ordered show no significant abnormality. Although your examination and all studies that were ordered showed no significant abnormal finding, there are no examinations and no studies that are 100% accurate. There is always the possibility that some abnormality could exist and not be detected with physical examination or within the limits and capabilities of laboratory and other studies. You should return or follow up as you were instructed on your visit today for further evaluation if your symptoms do not resolve. CHEST PAIN OF UNCLEAR CAUSE: The exact cause of your chest pain isn't clear. Fortunately, there is no evidence of a dangerous medical condition. Further testing may be required to find the source of the pain. Most often, we find that this pain is coming from the chest wall -- the muscles or rib joints in the chest. But chest pain can come from the lung and lung lining, the esophagus, the heart valves or heart lining, and even the st omach or gallbladder. Rest. Eat lightly until the pain is gone. We may prescribe medicine for pain and inflammation. You should call the physician immediately if the pain radiates to the s houlder, jaw or arms; if you start to run a fever or develop a cough; or if you develop shortness of breath, or other new or alarming symptoms. NORMAL EXAM AND WORKUP: At this time, your examination and workup show no significant abnormality. No significant abnormal physical findings were noted. All laboratory, EKG, and imaging (x-ray, CT scans, ultrasound) studies that were ordered show no significant abnormality. Although your examination and all studies that were ordered showed no significant abnormal finding, there are no examinations and no studies that are 100% accurate. There is always the possibility that some abnormality could exist and not be detected with physical examination or within the limits and capabilities of laboratory and other studies. You should return or follow up as you were instructed on your visit today for further evaluation if your symptoms do not resolve. CHEST WALL PAIN: Your chest pain may be coming from the chest wall. This is often caused by straining the muscles or joints in the chest during physical activity, direct trauma, coughing, or vigorous vomiting. Persons with arthritis are especially prone to this type of pain, due to inflammation of the cartilage joints near the breast bone. Occasionally, no cause can be found. Rest from strenuous physical activity. This kind of chest pain is usually made worse by movement of the chest. Depending on the symptoms, we may prescribe medicine for pain, muscle relaxation, and antiinflammatory effects. If the pain is new, and seems to be due to muscle strain, cold packs can help. Otherwise, apply gentle warmth to the painful area for 15 minutes every hour or two. You should call contact the doctor immediately if things change. Further evaluation is needed if you develop a fever or cough, if the nature of the pain changes, or if you become short of breath. Anxiety The physician feels that some of your health problems are being caused by anxiety. Anxiety affects your health in many ways. Anxiety alone can cause pal pitations, sweats, chest pains, abdominal pains, shortness of breath, and headaches. It contributes to ulcer disease, high blood pressure, irritable bowel syndrome, and has been shown to cause flare-ups of many other diseases. Anxiety is not a simple disorder to treat. If the anxiety is due to recent life stresses, you may simply need time to "work through" the changes. If the anxiety is due to an underlying unhappiness with yourself or due to psychiatric disturbance, professional help will be needed. Your physician can refer you for further help if needed. Anti-anxiety medication is occasionally given if the stress is acute or if you are having trouble sleeping. Chronic or frequent use of these medications is not a good idea because the body becomes reliant on it, preventing you from dealing with life's normal stresses. FOLLOW-UP CARE: If you have been referred to a physician for follow-up care, call the physicians office for an appointment as you were instructed or within the next two days. If you experience worsening or a significant change in your symptoms, notify the physician immediately or return to the Emergency Department at any time for re-evaluation. Referrals: VICKEY DUDLEY PA-C [COMMUNITY BASED STAFF] - Follow up as needed
[2018-12-07 11:29] LABS: APPEARANCE,URINE CLEAR; BILIRUBIN,URINE NEGATIVE (NEGATIVE); COLOR,URINE YELLOW; GLUCOSE, URINE NEGATIVE (NEGATIVE); KETONES,URINE NEGATIVE (NEGATIVE); LEUKOCYTE ESTERASE,URINE NEGATIVE (NEGATIVE); NITRITE,URINE NEGATIVE (NEGATIVE); PROTEIN,URINE NEGATIVE (NEGATIVE); URINE SPECIFIC GRAVITY 1.027; UROBILINOGEN,URINE NEGATIVE mg/dL (<2.0)
[2018-12-07 11:37] LABS: ALBUMIN 4.6 g/dL (3.5-5.0); ALKALINE PHOSPHATASE 77 U/L (38-126); ANION GAP 6 (5-19); ASPARTATE AMINO TRANSFERASE 27 U/L (17-59); BILIRUBIN,DIRECT 0.2 mg/dL (0.0-0.4); BLOOD UREA NITROGEN 16 mg/dL (7-20); CALCIUM 9.6 mg/dL (8.4-10.2); CARBON DIOXIDE 31 mmol/L (22-30); CHLORIDE 103 mmol/L (98-107); CREATINE KINASE 96 U/L (55-170); GLUCOSE 101 mg/dL (75-110); POTASSIUM 4.5 mmol/L (3.6-5.0); TOTAL PROTEIN 7.3 g/dL (6.3-8.2)
[2018-12-07 11:45] LABS: URINE AMPHETAMINES SCREEN UNCONFIRMED POSITIVE; URINE BARBITURATES SCREEN NEGATIVE; URINE BENZODIAZEPINES SCREEN NEGATIVE; URINE COCAINE SCREEN NEGATIVE; URINE MARIJUANA (THC) SCREEN NEGATIVE; URINE METHADONE SCREEN NEGATIVE; URINE PHENCYCLIDINE SCREEN NEGATIVE
[2018-12-07 13:31] VITALS: BP 144/98
--- NOTE | 2018-12-07 14:25 | EKG REPORT ---
SEVERITY:- NORMAL ECG - SINUS RHYTHM NO CHANGE FROM LAST EKG : Confirmed by: Pilo Grace MD 07-Dec-2018 14:24:47
== END 2018-12-07 13:33 | disposition home or self-care (01) ==
LOC: ER 10:15
DX: R10.30 Lower abdominal pain, unspecified (principal); R39.89 Other symptoms and signs involving the genitourinary system; R11.10 Vomiting, unspecified; R07.9 Chest pain, unspecified; R06.02 Shortness of breath; F41.9 Anxiety disorder, unspecified; F32.9 Major depressive disorder, single episode, unspecified; F43.9 Reaction to severe stress, unspecified; Z79.899 Other long term (current) drug therapy; Z63.4 Disappearance and death of family member; Z87.19 Personal history of other diseases of the digestive system; I10 Essential (primary) hypertension
CPT/HCPCS: 36415; 80053; 80307; 81001; 82550; 83690; 84484; 85025; 93005; 93010; 99285